=== PATIENT | female | born 1935 | race Caucasian/White ===

== ENCOUNTER → 2017-09-28 | Outpatient (CLI) | payer OTHER | LOC: BHLMT 11:30 | PROVIDERS: ATTEND Internal Medicine Interventional Cardiology | DX: I48.91 Unspecified atrial fibrillation (principal) | CPT/HCPCS: 93225-PO; 93226-PO ==

== ENCOUNTER → 2018-07-17 | Outpatient (CLI) | payer OTHER | LOC: BHLMT 14:45 | PROVIDERS: ATTEND Internal Medicine Interventional Cardiology | DX: I27.21 Secondary pulmonary arterial hypertension (principal) | CPT/HCPCS: 93306-PO ==